=== PATIENT | female | born 2005 | race Caucasian/White ===

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

== ENCOUNTER → 2025-05-16 | Outpatient (CLI) | payer OTHER ==
[2025-05-16 16:01] LABS: Creatinine, Urine Random 263.0 mg/dL (27.00-270.00); Microalb/Creat Ratio UR, Rand 13.346 mg/g (0.000-30.000); Microalbumin, Random Urine 35.1 mg/L (0.000-20.000)
== END | disposition home or self-care (01) ==
LOC: LAB SHORT 13:03 → LAB 13:03
PROVIDERS: Student in an Organized Health Care Education/Training Program
DX: E11.65 Type 2 diabetes mellitus with hyperglycemia (principal)
CPT/HCPCS: 82043; 82570